=== PATIENT | male | born 1980 | race Caucasian/White ===

== ENCOUNTER → 2016-10-25 | Outpatient (CLI) | payer MEDICAID ==
[~2016-10-25] MED LIST: BACTRIM DS 8001 TAB PO
[2016-10-25 15:38] LABS: HEMOGLOBIN 13.6 g/dL (14.1-18.0); LYMPH # 1.5 K/mm3 (0.7-4.5); URINE BILIRUBIN - DIPSTICK NEGATIVE (NEG); URINE BLOOD NEGATIVE (NEG)
[2016-10-25 15:40] LABS: BUN 12 mg/dL (7-18); GFR (ESTIMATED) 109 ML/MIN (>60)
== END ==
LOC: LAB 15:17
PROVIDERS: Surgery
DX: K40.90 Unilateral inguinal hernia, without obstruction or gangrene, not specified as recurrent (principal); Z01.812 Encounter for preprocedural laboratory examination